=== PATIENT | female | born 1960 | race Caucasian/White ===

== ENCOUNTER 2023-05-13 08:37 | Inpatient (IN) | payer OTHER ==
[2023-05-28] MEDS ORDERED: PHENYLEPHRINE-NS 100 MCG/ML 10 ML SYRINGE ONE (06:51)
[2023-05-28] MEDS ORDERED: Atropine Sulfate 1 mg/1 ml Vial ONE (06:51)
[2023-05-28] MEDS ORDERED: Phenylephrine 40 MG/NS 250 ML 250 ML ONE (06:52)
[2023-05-28] MEDS ORDERED: Heparin 10,000 UNITS/ 10 ML VIAL ONE ×2 (07:00→08:34)
[2023-05-28] MEDS ORDERED: Midazolam HCl 2 mg/2 ml Vial ONE ×2 (07:00→08:36)
[2023-05-28] MEDS ORDERED: Lidocaine 1% (PF) 30 ML VIAL ONE (07:00)
[2023-05-28] MEDS ORDERED: fentaNYL 50 mcg/mL 1 mL Vial ONE ×2 (07:00→08:17)
[2023-05-28 07:10] LABS: #Eosinphils 0.2 10x3/uL (0.0-0.5); #Monocytes 0.6 10x3/uL (0.0-1.1); #Neutrophils 2.5 10x3/uL (1.5-8.4); %Basophils 0.7 % (0.0-2.0); %Eosinophils 3.4 % (0.0-6.0); %Lymphocytes 40.8 % (18.0-47.0); %Monocytes 10.2 % (0.0-10.0); %Neutrophils 44.7 % (40.0-75.0); Hematocrit 39.5 % (34.9-44.5); Hemoglobin 13.8 g/dL (12.0-15.5); Mean Corpuscular HGB CONC 34.9 g/dL (32.0-36.0); Mean Corpuscular Volume 94.5 fl (81.6-98.3); Mean Platelet Volume 9.8 fl (7.4-10.4); Platelet Count 280 10x3/uL (150-450); RBC Distribution Width 13.1 % (11.5-14.5); Red Blood Cell (RBC) Count 4.18 10x6/uL (3.90-5.03); White Blood Cell (WBC) Count 5.6 10x3/uL (3.5-10.5)
[2023-05-28 07:16] LABS: PTT 28.1 sec (22.0-33.0); Prothrombin Time 10.3 sec (9.5-12.1)
[2023-05-28 07:24] LABS: ALT (SGPT) 17 U/L (8-55); AST (SGOT) 17 U/L (5-34); Albumin 4.1 g/dL (3.5-5.0); Alkaline Phosphatase 85 U/L (40-110); Anion Gap 13 mmol/L (10-20); BUN (Urea Nitrogen) 15 mg/dL (9.8-20.1); Bilirubin, Total 0.4 mg/dL (0.2-1.2); Calc. Creatinine Clearance 0 mL/min (70-130); Calcium 9.4 mg/dL (7.8-10.44); Carbon Dioxide 22 mmol/L (22-29); Chloride 109 mmol/L (98-107); Estimated GFR 80; Globulin 3.2 g/dL (2.4-3.5); Glucose 91 mg/dL (70-105); Potassium 3.9 mmol/L (3.5-5.1); Protein, Total 7.3 g/dL (6.0-8.3); Sodium 140 mmol/L (136-145)
[2023-05-28] MEDS ORDERED: Ondansetron PF 4 MG/2 ML Vial IVP PRN (08:33)
[2023-05-28] MEDS ORDERED: Loperamide HCl 2 MG CAP PO PRN (08:33)
[2023-05-28] MEDS ORDERED: Ondansetron ODT 4 MG TAB PO PRN (08:33)
[2023-05-28] MEDS ORDERED: Calcium Carbonate 500 MG ChewTAB PO PRN (08:33)
[2023-05-28] MEDS ORDERED: HYDROcodone/Acetaminophen 5/325 mg Tablet PO PRN ×2 (08:33)
[2023-05-28] MEDS ORDERED: Senokot S 8.6-50 MG TAB PO PRN (08:33)
[2023-05-28] MEDS ORDERED: Ondansetron PF 4 MG/2 ML Vial ONE (08:36)
[2023-05-28] MEDS ORDERED: Nitroglycerin 50 MG/250 ML BOT 250 ML ONE (09:06)
[2023-05-28] MEDS ORDERED: Sodium Chloride 0.9% 200 ML IV PRN (09:17)
[2023-05-28] MEDS ORDERED: Nitroglycerin 0.4 MG TAB (25 Tab Bottle) SL PRN (09:17)
[2023-05-28] MEDS ORDERED: Acetaminophen/Codeine 30-300mg Tablet PO PRN ×2 (09:17)
[2023-05-28] MEDS ORDERED: Phenylephrine 40 MG, Admixture Fee 1 EACH in Sodium Chloride 0.9% 250 ML 250 ML IVPB SCH (09:30)
[2023-05-28] MEDS ORDERED: Iopamidol 300 61% 100 ML VIAL FS ONE (09:47)
[2023-05-28] MEDS: Clopidogrel Bisulfate 75 MG TAB PO SCH (14:27)
[2023-05-28] MEDS: Aspirin 81 mg Enteric Coated Tablet PO SCH (14:27)
[2023-05-28 15:08] VITALS: BMI 27.2
[2023-05-28] MEDS ORDERED: Nicotine 14 MG PATCH TD SCH (15:30)
[2023-05-28] MEDS ORDERED: Lidocaine 4% Patch TD SCH (18:00)
[2023-05-28] MEDS: Acetaminophen 325 MG TAB PO PRN (18:22)
[2023-05-28] MEDS ORDERED: Rosuvastatin 10 MG TAB PO SCH (21:00)
[2023-05-28] MEDS ORDERED: Atorvastatin Calcium 40 MG TAB PO SCH (21:00)
[2023-05-29] MEDS: Acetaminophen 325 MG TAB PO PRN (00:41)
[2023-05-29 03:58] LABS: #Eosinphils 0.2 10x3/uL (0.0-0.5); #Monocytes 0.7 10x3/uL (0.0-1.1); #Neutrophils 3.1 10x3/uL (1.5-8.4); %Basophils 0.5 % (0.0-2.0); %Eosinophils 2.8 % (0.0-6.0); %Lymphocytes 36.7 % (18.0-47.0); %Monocytes 11.4 % (0.0-10.0); %Neutrophils 48.4 % (40.0-75.0); Hemoglobin 10.5 g/dL (12.0-15.5); Mean Corpuscular HGB CONC 33.9 g/dL (32.0-36.0); Mean Corpuscular Hemoglobin 32.5 pg (27.0-33.0); Mean Platelet Volume 9.9 fl (7.4-10.4); Platelet Count 229 10x3/uL (150-450); RBC Distribution Width 13.2 % (11.5-14.5); Red Blood Cell (RBC) Count 3.23 10x6/uL (3.90-5.03); White Blood Cell (WBC) Count 6.4 10x3/uL (3.5-10.5)
[2023-05-29 04:01] LABS: ALT (SGPT) 14 U/L (8-55); AST (SGOT) 14 U/L (5-34); Albumin 3.2 g/dL (3.5-5.0); Alkaline Phosphatase 63 U/L (40-110); Anion Gap 9 mmol/L (10-20); BUN (Urea Nitrogen) 16 mg/dL (9.8-20.1); Bilirubin, Total 0.5 mg/dL (0.2-1.2); Calc. Creatinine Clearance 84 mL/min (70-130); Calcium 8.3 mg/dL (7.8-10.44); Carbon Dioxide 23 mmol/L (22-29); Chloride 109 mmol/L (98-107); Estimated GFR 77; Globulin 2.4 g/dL (2.4-3.5); Glucose 93 mg/dL (70-105); Potassium 4.1 mmol/L (3.5-5.1); Protein, Total 5.6 g/dL (6.0-8.3); Sodium 137 mmol/L (136-145)
[2023-05-29] MEDS ORDERED: Transdermal Patch Removal TOP SCH (06:00)
[2023-05-29] MEDS: Aspirin 81 mg Enteric Coated Tablet PO SCH (07:24)
[2023-05-29] MEDS: Clopidogrel Bisulfate 75 MG TAB PO SCH (07:24)
[2023-05-29 08:25] VITALS: BP 124/79; TEMP 98.9
== END 2023-05-29 09:12 | disposition home or self-care (01) | DRG 36 ==
LOC: CSHTELE 05-28 06:13 → EDSTATUS 05-28 13:40 → CSHIMCU 05-28 14:53
PROVIDERS: ADMIT Specialist; ATTEND Specialist
PROC: 037L3DZ Dilation of Left Internal Carotid Artery with Intraluminal Device, Percutaneous Approach (ICD-10-PCS; principal; 2023-05-28)
PROC: B4101ZZ Fluoroscopy of Abdominal Aorta using Low Osmolar Contrast (ICD-10-PCS; 2023-05-28)
PROC: B3131ZZ Fluoroscopy of Right Common Carotid Artery using Low Osmolar Contrast (ICD-10-PCS; 2023-05-28)
PROC: B3171ZZ Fluoroscopy of Left Internal Carotid Artery using Low Osmolar Contrast (ICD-10-PCS; 2023-05-28)
PROC: 3E033XZ Introduction of Vasopressor into Peripheral Vein, Percutaneous Approach (ICD-10-PCS; 2023-05-28)
DX: I65.23 Occlusion and stenosis of bilateral carotid arteries (principal); F17.200 Nicotine dependence, unspecified, uncomplicated; I10 Essential (primary) hypertension; Z88.5 Allergy status to narcotic agent; Z79.82 Long term (current) use of aspirin; Z71.6 Tobacco abuse counseling
CPT/HCPCS: 36222; 36227; 36415; 37215; 71045; 80053; 85025; 85347; 85610; 85730; 93005; 93010; 99152; 99153; C1725; C1760; C1769; C1876; C1884; C1894; J0461; J1644; J2001; J2250; J2405; J3010; Q9967

== ENCOUNTER 2025-02-01 12:24 | Outpatient (CLI) | payer OTHER | END 2025-02-01 12:25 | disposition home or self-care (01) | LOC: CSHCT 12:24 | PROVIDERS: ATTEND Internal Medicine Hematology & Oncology | DX: C43.59 Malignant melanoma of other part of trunk (principal); Z12.2 Encounter for screening for malignant neoplasm of respiratory organs; F17.210 Nicotine dependence, cigarettes, uncomplicated | CPT/HCPCS: 71271 ==